=== PATIENT | female | born 1970 | race Caucasian/White ===

== ENCOUNTER 2017-01-14 17:59 | Emergency (ER) | payer MEDICAID ==
--- NOTE | 2017-01-14 18:35 | ED Physician Chart ---
ED Chief Complaint/HPI - Patient Information Date Seen:: 01/14/17 Time Seen:: 18:15 Chief Complaint:: genital rash History of Present Illness:: Patient has had a pruritic lesion on her left labia since yesterday. Patient has a history of genital herpes which she thinks her current lesion is secondary to. Patient denies increased vaginal discharge or vaginal pruritus recently. Allergies:: Allergies Allergy/AdvReac Type Severity Reaction Status Date / Time No Known Allergies Allergy Verified 01/14/17 18:10 Vitals:: Vital Signs - 8 hr 01/14/17 18:19 Temp 97.6 F HR 96 RR 16 BP 137/89 O2 Sat % 99 Historian:: Patient Review:: Nurse's Note Reviewed ED Past Medical History - Past Medical History Past Medical History: Other (genital herpes) Family History: None Social History: Non Smoker, No Alcohol Surgical History: None Psychiatricy History: None Medication: None ED Physical Exam - Physical Examination General/Constitutional: Well-developed, well-nourished, No distress Head: Atraumatic Eyes: Lids, conjuctiva normal, PERRL Skin: Nl inspection ENMT: External ears, nose nl Neck: No nuchal rigidity Respiratory: Nl effort/Exclusion, Clear to Auscultation Cardio Vascular: RRR, No murmur, gallop, rubs GI: No tenderness/rebounding/guarding, No organomegaly : No CVA tenderness Other comments:: By 2 mm flat red nodule left labia; white vaginal discharge noted Extremities: No tenderness or effusion Neuro/Psych: Alert/oriented, No focal deficits ED Assessment - Assessment General Assessment: As well as prescribing Zovirax for her genital herpes I will also prescribe Diflucan for the apparent jorge l infection as demonstrated by her white vaginal discharge ED Septic Shock - . Is Septic Shock (SBP<90, OR Lactate>4 mmol\L) present?: No - <6hrs of presentation: Vital Signs: Vital Signs - 8 hr 01/14/17 18:19 Temp 97.6 F HR 96 RR 16 BP 137/89 O2 Sat % 99 ED Reassessment (Disposition) - Reassessment Reassessment Condition:: Unchanged - Diagnosis Diagnosis:: Genital herpes; vaginal candidiasis - Aftercare/Follow up Instructions Aftercare/Follow-Up Instructions:: Refer to Discharge Instructions Medication Prescribed:: Zovirax 800 mg 3 times a day for 2 days with 4 refills and Diflucan 150 mg #1 to take as soon as possible - Patient Disposition Discharge/Transfer:: Home Condition at Disposition:: Stable, Unchanged ED Discharge Plan - Patient Disposition Instructions: Herpes Labialis
== END 2017-01-14 18:35 | disposition home or self-care (01) ==
LOC: ER 17:59
DX: A60.00 Herpesviral infection of urogenital system, unspecified (principal); B37.3 Candidiasis of vulva and vagina
CPT/HCPCS: Z7502